=== PATIENT | male | born 1985 | race Caucasian/White ===

== ENCOUNTER 2021-02-27 10:48 | Outpatient (CLI) | payer OTHER, SELFPAY ==
--- NOTE | 2021-02-27 10:55 | MR_ITS ---
WS: [id number] MRI LUMBAR SPINE NONCONTRAST HISTORY: LOW BACK PAIN;OTHER CHRONIC PAIN COMPARISON: None available. TECHNIQUE: Sagittal and axial multisequence imaging is submitted. Prior cervical fusion at C5-6. Mild increase in thoracic kyphosis with mild disc space narrowing. Sev eral Schmorl's nodes defects are noted in the thoracic spine. T9-10 disc osteophyte contact and the v entral thecal sac. Mild encroachment upon the cord. Severe disc space narrowing and osteophytosis wit h subchondral edema at the T12-L1 level. There is mild posterior bulging of the T12-L1 disc with mild contact upon the ventral thecal sac. Posterior lumbar alignment is normal. Disc spaces and vertebral body heights are well-preserved. Conus terminates normally at L1. L1-L2: Mild annular disc bulge. 13 mm RIGHT foraminal nerve root sleeve diverticulum. L2-L3: Mild annular disc bulging and facet arthritis. Very mild RIGHT foraminal narrowing. L3-L4: Mild annular disc bulging with mild ligamentum flavum disease and facet arthritis. Disc encroa chment upon the L4 nerve roots in the lateral recesses but no displacement. Mild to moderate bilatera l foraminal stenosis. L4-L5: Diffuse annular disc bulging with mild ligamentum flavum hypertrophy and facet arthritis. Disc encroaches into the lateral recesses bilaterally with mild contact on the L5 nerve roots. Mild to mo derate bilateral foraminal stenosis. L5-S1: Mild annular disc bulge with a central small disc protrusion. Mild ligamentum flavum hypertrop hy. No significant stenosis. Very mild RIGHT foraminal stenosis. MR/MR lumbar spine wo con* [id number] IMPRESSION: 1. Mild disc encroachment into the lateral recesses at L3-4 and L4-5 with mild to moderate bilateral foraminal stenosis. 2. Severe degenerative disc disease at T12-L1 with mild contact upon the ventr al thecal sac. 3. Small disc or osteophyte centrally contacting the ventral cord at T9-10.
== END 2021-02-27 10:49 | disposition home or self-care (01) ==
LOC: RADSHAW 10:53
PROVIDERS: PCP Nurse Practitioner Family; Visit Provider Nurse Practitioner Family
DX: M54.5 Low back pain (principal); G89.29 Other chronic pain; M51.35 Other intervertebral disc degeneration, thoracolumbar region
CPT/HCPCS: 72148

== ENCOUNTER 2021-03-22 11:02 | Outpatient (CLI) | payer OTHER, SELFPAY ==
--- NOTE | 2021-03-22 11:10 | US_ITS ---
WS: [id number] TESTICULAR ULTRASOUND HISTORY: LUMP IN TESTICLE COMPARISON: None available. TECHNIQUE: Real-time and color Doppler imaging or utilized to perform a testicular ultrasound. Right testicle: 5.2 cm x 3.1 cm x 3.3 cm. Normal size and echogenicity. No mass or torsion. Normal color Doppler is present throughout. Systolic and diastolic velocities are both present. No significant hydrocele. Right epididymis: Normal epididymis with no increased vascularity. Left testicle: 4.9 cm x 2.9 cm x 3.1 cm. No mass identified. Normal vascularity. Normal color Doppler is present throughout. Systolic and diastolic velocities are both present. No hydrocele. Left epididymis: Normal epididymis with no increased vascularity. US/US scrotum [id number] IMPRESSION: NORMAL TESTICULAR ULTRASOUND. No testicular mass identified. No torsion or epid idymitis.
== END 2021-03-22 11:03 | disposition home or self-care (01) ==
LOC: RAD 11:03
PROVIDERS: PCP Nurse Practitioner Family; Visit Provider Nurse Practitioner Family
DX: N50.89 Other specified disorders of the male genital organs (principal)
CPT/HCPCS: 76870

== ENCOUNTER 2022-01-18 15:51 | Outpatient (CLI) | payer OTHER, SELFPAY ==
--- NOTE | 2022-01-18 | XRR_ITS ---
PROCEDURE INFORMATION: Exam: XR Left Shoulder Exam date and time: 01/18/2022 4:08 PM Age: 36 years old Clinical indication: Pain; Shoulder; Left; Additional info: Left shoulder pain TECHNIQUE: Imaging protocol: XR Left shoulder. Views: 2 or more views. COMPARISON: CT Chest/Abdomen/Pelvis w IV* 02/15/2018 10:35 PM FINDINGS: Bones/joints: Normal. Soft tissues: Normal. XR/XR shoulder LT min 2V* [id number] IMPRESSION: No acute findings.
== END 2022-01-18 15:52 | disposition home or self-care (01) ==
PROVIDERS: PCP Nurse Practitioner Family; Visit Provider Nurse Practitioner Family
DX: M25.512 Pain in left shoulder (principal)
CPT/HCPCS: 73030

== ENCOUNTER → 2023-02-19 08:14 | Outpatient (BNVA) | payer OTHER, SELFPAY | PROVIDERS: PCP Nurse Practitioner Family; Referring Provider Nurse Practitioner Family; Visit Provider Orthopaedic Surgery | DX: M48.062 Spinal stenosis, lumbar region with neurogenic claudication (principal) | CPT/HCPCS: 72110 ==